=== PATIENT | male | born 1935 | race Caucasian/White ===

== ENCOUNTER → 2020-02-29 10:08 | Outpatient (CLI) | payer MEDICARE, SELFPAY ==
[2020-02-29 12:21] LABS: Prostate Specific Ag, Diagnost < 0.064 ng/ml (0.0-4.0)
== END ==
PROVIDERS: Visit Provider Urology
DX: C61 Malignant neoplasm of prostate (principal)
CPT/HCPCS: 36415; 84153

== ENCOUNTER → 2021-03-02 14:52 | Outpatient (CLI) | payer MEDICARE, SELFPAY ==
[2021-03-02 16:15] LABS: Prostate Specific Ag, Diagnost < 0.064 ng/ml (0.0-4.0)
== END ==
PROVIDERS: Visit Provider Urology
DX: C61 Malignant neoplasm of prostate (principal)
CPT/HCPCS: 36415; 84153